=== PATIENT | male | born 1960 | race Caucasian/White ===

== ENCOUNTER 2023-12-15 12:54 | Inpatient (IN) | payer MEDICAID, OTHER ==
[~2023-12-15] VITALS: Ht 177.8 cm; Wt 85.7 kg
[~2023-12-15 12:54] MED LIST: TACR30OI4 TP; [UNRECOGNIZED DRUG - CODE] TP
[2023-12-15] MEDS ORDERED: ONDANSETRON HCL/PF 4 MG/2 ML VIAL ONE (13:38)
[2023-12-15] MEDS ORDERED: FAMOTIDINE/PF INJ 20 MG/2 ML VIAL IV ONE (13:39)
[2023-12-15 13:55] LABS: BASOPHILS # (AUTO) 0.1 K/uL (0.0-0.2); EOSINOPHILS # (AUTO) 0.3 K/uL (0.0-0.7); EOSINOPHILS % (AUTO) 4.6 % (0.0-6.0); HEMATOCRIT 36 % (39-51); HEMOGLOBIN 11.8 g/dL (13.5-17.5); LYMPHOCYTES # (AUTO) 1.7 K/uL (0.8-4.8); LYMPHOCYTES % (AUTO) 27.6 % (20.0-44.0); MEAN CORPUSCULAR HEMOGLOBIN 26 PG (26.0-33.0); MEAN CORPUSCULAR HGB CONC 33 g/dl (31.0-36.0); MEAN CORPUSCULAR VOLUME 80 fL (80-96); MONOCYTES # (AUTO) 0.5 K/uL (0.1-1.30); MONOCYTES % (AUTO) 8.7 % (2.0-12.0); NEUTROPHILS # (AUTO) 3.5 K/uL (1.8-8.9); NEUTROPHILS % (AUTO) 58.1 % (43.0-81.0); PLATELET COUNT (AUTO) 177 K/uL (150-450); RED BLOOD CELL COUNT(AUTO) 4.54 MIL/uL (4.5-6.0)
[2023-12-15 14:04] LABS: ALANINE AMINOTRANSFERASE 51 U/L (12-78); ALBUMIN 3.4 g/dL (3.4-5.0); ALKALINE PHOSPHATASE 150 U/L (46-116); ASPARTATE AMINOTRANSFERASE 25 U/L (15-37); BILIRUBIN,DIRECT 0.1 mg/dL (0.0-0.2); CALCIUM, SERUM 9.1 mg/dL (8.5-10.1); CARBON DIOXIDE 22 mmol/L (21-32); CHLORIDE 106 mmol/L (98-107); CREATININE 1.1 mg/dL (0.6-1.3); GLUCOSE 121 mg/dL (74-106); LIPASE 21 U/L (16-77); POTASSIUM 3.5 mmol/L (3.5-5.1); SODIUM SERUM 138 mmol/L (136-145); TOTAL PROTEIN, SERUM 6.9 g/dL (6.4-8.2); UREA NITROGEN, BLOOD 19 mg/dL (7-18)
[2023-12-15] MEDS: FAMOTIDINE/PF INJ 20 MG/2 ML VIAL IV ONE (14:04)
[2023-12-15] MEDS: ONDANSETRON HCL/PF 4 MG/2 ML VIAL IVP ONE (14:04)
[2023-12-15] MEDS: IV NS 0.9% 1,000 ML BAG IV ONE (14:04)
[2023-12-15 14:25] LABS: BILIRUBIN,TOTAL 0.4 mg/dL (0.2-1.0)
[2023-12-15 15:53] LABS: APPEARANCE,URINE Clear (CLEAR); BILIRUBIN,URINE SMALL (NEGATIVE); BLOOD, URINE Negative Ery/uL (NEGATIVE); COLOR,URINE YELLOW (YELLOW); KETONES,URINE Trace mg/dL (NEGATIVE); LEUKOCYTE ESTERASE ,URINE Negative (NEGATIVE); NITRITE, URINE Negative (NEGATIVE); PH,URINE 5.5 (5.0-8.0); PROTEIN,URINE Negative (NEGATIVE); UGLUCOSE Negative (NEGATIVE); UROBILINOGEN,URINE 0.2 EU/dL (0.2)
[2023-12-15 16:01] LABS: AMPHETAMINE, URINE NEGATIVE (NEGATIVE); BARBITURATE, URINE NEGATIVE (NEGATIVE); BENZODIAZEPINE, URINE NEGATIVE (NEGATIVE); COCCAINE, URINE NEGATIVE (NEGATIVE); PHENCYCLIDINE SCREEN,URINE NEGATIVE (NEGATIVE)
[2023-12-15 16:02] LABS: CANNABINOID, URINE POSITIVE (NEGATIVE); OPIATE, URINE POSITIVE (NEGATIVE)
[2023-12-15 17:09] LABS: ADD URINE CULTURE NO; BACTERIA,URINE Rare /HPF (None Seen); RBC,URINE 0-2 /HPF (0-2); SQUAMOUS EPITHELIAL CELL,UR Few /HPF (None Seen); WBC,URINE 0-2 /HPF (0-3)
[2023-12-15] MEDS ORDERED: OXYC-133 PO (17:39)
[2023-12-15] MEDS ORDERED: BENA5TAB5 PO (17:39)
[2023-12-15] MEDS ORDERED: BISA10SU11 RC (17:39)
[2023-12-15] MEDS ORDERED: GABA800T11 PO (17:39)
[2023-12-15] MEDS ORDERED: DOCU100C36 PO (17:39)
[2023-12-15] MEDS ORDERED: LIDO700A30 TP (17:39)
[2023-12-15] MEDS ORDERED: QUET400T PO (17:39)
[2023-12-15] MEDS ORDERED: MAGN400O6 PO (17:39)
[2023-12-15] MEDS ORDERED: ATOR40TA PO (17:39)
[2023-12-15] MEDS ORDERED: BUPR75TA21 PO (17:39)
[2023-12-15] MEDS ORDERED: MULT-213 PO (17:39)
[2023-12-15] MEDS ORDERED: ACET325T53 PO (17:39)
[2023-12-15] MEDS ORDERED: CALC355O18 PO (17:39)
[2023-12-15] MEDS ORDERED: NA P133E RC (17:39)
[2023-12-15] MEDS ORDERED: DICL75TA5 PO (17:39)
[2023-12-15] MEDS ORDERED: OMEP20TA5 PO (17:39)
[2023-12-15] MEDS ORDERED: METH750T3 PO (17:39)
[2023-12-15] MEDS ORDERED: ZOLPIDEM TARTRATE 5 MG TABLET PO PRN (19:00)
[2023-12-15] MEDS ORDERED: ONDANSETRON HCL/PF 4 MG/2 ML VIAL IVP PRN (19:00)
[2023-12-15] MEDS ORDERED: Z GUARD REMEDY 4 OZ OINT TP PRN (19:00)
[2023-12-15] MEDS ORDERED: MAGNESIUM HYDROXIDE 30 ML UDC PO PRN (19:00)
[2023-12-15] MEDS ORDERED: ACETAMINOPHEN 325 MG TABLET PO PRN (19:00)
[2023-12-15] MEDS ORDERED: MAG HYDROX/AL HYDROX/SIMETH 30 ML UDC PO PRN (19:00)
[2023-12-15 20:00] VITALS: BP 146/82; TEMP 98
[2023-12-15] MEDS: ENOXAPARIN SODIUM 40 MG/0.4 ML DISP.SYRIN SQ SCH (21:24)
[2023-12-16] VITALS: BP 144/78; TEMP 98; O2SAT 96
[2023-12-16] MEDS: KETOROLAC TROMETHAMINE INJ 30 MG/ML VIAL IM PRN (02:31)
[2023-12-16 04:00] VITALS: BP 142/77; TEMP 98.1; O2SAT 97
[2023-12-16 07:10] LABS: BASOPHILS # (AUTO) 0.1 K/uL (0.0-0.2); BASOPHILS % (AUTO) 0.5 % (0.0-2.0); EOSINOPHILS # (AUTO) 0.3 K/uL (0.0-0.7); EOSINOPHILS % (AUTO) 3.7 % (0.0-6.0); HEMATOCRIT 38 % (39-51); HEMOGLOBIN 12.3 g/dL (13.5-17.5); LYMPHOCYTES # (AUTO) 1.7 K/uL (0.8-4.8); LYMPHOCYTES % (AUTO) 19.1 % (20.0-44.0); MEAN CORPUSCULAR HEMOGLOBIN 26 PG (26.0-33.0); MEAN CORPUSCULAR HGB CONC 32 g/dl (31.0-36.0); MEAN CORPUSCULAR VOLUME 80 fL (80-96); MONOCYTES # (AUTO) 0.8 K/uL (0.1-1.30); MONOCYTES % (AUTO) 8.9 % (2.0-12.0); NEUTROPHILS # (AUTO) 6.2 K/uL (1.8-8.9); NEUTROPHILS % (AUTO) 67.8 % (43.0-81.0); PLATELET COUNT (AUTO) 197 K/uL (150-450); RED BLOOD CELL COUNT(AUTO) 4.81 MIL/uL (4.5-6.0); RED CELL DISTRIBUTION WIDTH 17.8 % (11.5-15.0); WHITE BLOOD COUNT (AUTO) 9.2 K/uL (4.3-11.0)
[2023-12-16 07:15] LABS: CALCIUM, SERUM 8.9 mg/dL (8.5-10.1); MAGNESIUM 2.3 mg/dL (1.8-2.4); PHOSPHORUS 3.4 mg/dL (2.5-4.9); POTASSIUM 3.9 mmol/L (3.5-5.1)
[2023-12-16 07:33] LABS: THYROID STIMULATING HORMONE 0.724 uIU/mL (0.358-3.74)
[2023-12-16 08:00] VITALS: BP 142/71; TEMP 98.2; O2SAT 95
[2023-12-16] MEDS: PANTOPRAZOLE 40 MG TABLET.DR PO SCH (08:37)
[2023-12-16] MEDS: HYDROCODONE/APAP 5/325MG TABLET PO PRN (09:19)
[2023-12-16 12:00] VITALS: BP 137/71; TEMP 97; O2SAT 95
[2023-12-16] MEDS ORDERED: ACETAMINOPHEN 325 MG TABLET PO PRN (14:30)
[2023-12-16] MEDS ORDERED: BISACODYL SUPP (10 MG) 10 MG/SUPP.RECT SUPP.RECT RC PRN (14:30)
[2023-12-16] MEDS ORDERED: Medication Not On Formulary EA (Calcium Carb/Mag Hydrox/Simeth (Mylanta Tonight 800-270- PO PRN (14:30)
[2023-12-16] MEDS ORDERED: NA PHOS,M-B/NA PHOS,DI-BA 1 EA ENEMA RC PRN (14:30)
[2023-12-16] MEDS ORDERED: METHOCARBAMOL (750MG) 750 MG TABLET PO PRN (14:30)
[2023-12-16] MEDS ORDERED: MAGNESIUM HYDROXIDE 30 ML UDC PO PRN (14:30)
[2023-12-16] MEDS ORDERED: GABAPENTIN 400 MG CAPSULE PO PRN (15:00)
[2023-12-16 16:00] VITALS: BP 134/89; TEMP 97.7; O2SAT 96
[2023-12-16] MEDS: DICLOFENAC SODIUM 25 MG TABLET.DR PO SCH (17:01)
[2023-12-16 20:00] VITALS: BP_SYST 145; BP_SYST 97; BP_DIAS 64; BP_DIAS 83; TEMP 97.5; TEMP 98; O2SAT 95; O2SAT 97
[2023-12-16] MEDS ORDERED: [UNRECOGNIZED DRUG - OTHER] TP SCH (21:00)
[2023-12-16] MEDS ORDERED: TACROLIMUS TP SCH (21:00)
[2023-12-16] MEDS: ATORVASTATIN 40 MG TABLET PO SCH (21:06)
[2023-12-16] MEDS: QUETIAPINE FUMARATE 100 MG TABLET PO SCH (21:07)
[2023-12-17] VITALS: BP 120/66; TEMP 97.9; O2SAT 99
[2023-12-17 04:00] VITALS: BP 109/61; TEMP 98; O2SAT 98
[2023-12-17 08:09] LABS: POTASSIUM 3.4 mmol/L (3.5-5.1)
[2023-12-17 08:10] LABS: CALCIUM, SERUM 8.5 mg/dL (8.5-10.1); CREATININE 0.7 mg/dL (0.6-1.3); MAGNESIUM 2.1 mg/dL (1.8-2.4); PHOSPHORUS 3.3 mg/dL (2.5-4.9)
[2023-12-17] MEDS: LIDOCAINE 5% (PATCH) 1 EA PATCH TP SCH (08:49)
[2023-12-17] MEDS: DOCUSATE SODIUM 100 MG CAPSULE PO SCH (08:49)
[2023-12-17] MEDS: buPROPion 75 MG TABLET PO SCH (08:50)
[2023-12-17] MEDS: MULTIVIT W/MINERALS 1 TAB TABLET PO SCH (08:50)
[2023-12-17 09:02] VITALS: BP 139/77
[2023-12-17] MEDS: BENAZEPRIL HCL 5 MG TABLET PO SCH (09:02)
[2023-12-17 10:08] LABS: BASOPHILS % (AUTO) 0.7 % (0.0-2.0); EOSINOPHILS # (AUTO) 0.3 K/uL (0.0-0.7); HEMATOCRIT 37 % (39-51); HEMOGLOBIN 11.9 g/dL (13.5-17.5); LYMPHOCYTES # (AUTO) 1.7 K/uL (0.8-4.8); MEAN CORPUSCULAR HEMOGLOBIN 26 PG (26.0-33.0); MEAN CORPUSCULAR HGB CONC 32 g/dl (31.0-36.0); MEAN CORPUSCULAR VOLUME 79 fL (80-96); MONOCYTES # (AUTO) 0.6 K/uL (0.1-1.30); NEUTROPHILS # (AUTO) 2.9 K/uL (1.8-8.9); NEUTROPHILS % (AUTO) 53.3 % (43.0-81.0); PLATELET COUNT (AUTO) 179 K/uL (150-450); RED BLOOD CELL COUNT(AUTO) 4.68 MIL/uL (4.5-6.0); RED CELL DISTRIBUTION WIDTH 17.6 % (11.5-15.0); WHITE BLOOD COUNT (AUTO) 5.5 K/uL (4.3-11.0)
[2023-12-17] MEDS ORDERED: OXYC-133 PO (10:46)
[2023-12-17] MEDS: POTASSIUM CHLORIDE 20 MEQ TAB.PRT.SR PO SCH (12:52)
== END 2023-12-17 14:20 | DRG 422 ==
LOC: ER 13:00 → TELE1 17:33
PROVIDERS: ADMIT Student in an Organized Health Care Education/Training Program; ATTEND Student in an Organized Health Care Education/Training Program
DX: E86.0 Dehydration (principal); G92.8 Other toxic encephalopathy; R56.1 Post traumatic seizures; D64.9 Anemia, unspecified; E78.5 Hyperlipidemia, unspecified; G62.9 Polyneuropathy, unspecified; Z98.1 Arthrodesis status; Z79.899 Other long term (current) drug therapy; I10 Essential (primary) hypertension; R42 Dizziness and giddiness; Z98.890 Other specified postprocedural states; F31.9 Bipolar disorder, unspecified; Z91.018 Allergy to other foods; Z88.0 Allergy status to penicillin; L21.9 Seborrheic dermatitis, unspecified; G89.4 Chronic pain syndrome; T50.905A Adverse effect of unspecified drugs, medicaments and biological substances, initial encounter; Y92.9 Unspecified place or not applicable; F20.9 Schizophrenia, unspecified; R79.89 Other specified abnormal findings of blood chemistry
CPT/HCPCS: 36415; 70450-TC; 80048-TC; 80061-TC; 80076-TC; 81001; 82962-TC; 83690-TC; 83735-TC; 84100-TC; 84443-TC; 84484-TC; 85025-TC; 87086-TC; 97110-TC; 97116-TC; 97530-TC; G0378; G0480; J1650; J1885; J2405; J3490; J7030